=== PATIENT | male | born 1980 | race Two or more races ===

== ENCOUNTER → 2017-08-10 | Outpatient (REF) | payer OTHER ==
[~2017-08-10] MED LIST: ACE3 PO; CIPR-212 PO; METHO500 PO; PER PO; UNKNOWN MEDS; [UNRECOGNIZED DRUG - CODE] PO
== END ==
LOC: ZZSENDIN 09:38
PROVIDERS: ATTEND Physician Assistant
DX: R10.13 Epigastric pain (principal); R14.0 Abdominal distension (gaseous); R74.0 Nonspecific elevation of levels of transaminase and lactic acid dehydrogenase [LDH]
CPT/HCPCS: 87338

== ENCOUNTER → 2017-08-31 | Outpatient (CLI) | payer OTHER ==
[~2017-08-31] MED LIST changes: +SIME62.54 PO
[2017-08-31 16:38] LABS: PLATELET COUNT, AUTOMATED 208 K/uL (150-450)
== END ==
LOC: LAB 16:04
PROVIDERS: ATTEND Emergency Medicine
DX: R74.8 Abnormal levels of other serum enzymes (principal)
CPT/HCPCS: 81332; 82103; 82390; 82784; 83516; 83540; 83550; 84160; 84165; 84443; 85025; 86038; 86140; 86376; 86706; 86707; 86803; 87340; 87350

== ENCOUNTER → 2017-09-02 | Outpatient (CLI) | payer OTHER ==
[~2017-09-02] MED LIST changes: +BARIUM SULFATE 176 GM BTL PO ONE; +BARIUM SULFATE 340 GM POWD ONE
--- NOTE | 2017-09-02 15:03 | RADIOLOGY IMAGING REPORT ---
[place] [facility] [place] Mana Diaz : 1980 MR: [id number] V: [id number] EXAM DATE: ORDERING PHYSICIAN: VIK PLEITEZ TECHNOLOGIST: Location: [facility] - [place] Patient: Mana Diaz : 1980 Visit/Account:[id number] Date of Sevice: 09/02/2017 LIVER HISTORY: Elevated liver enzymes. COMPARISON: None. FINDINGS: Pancreas: Normal. Upper abdominal aorta and IVC: Aorta and IVC are patent by color Doppler and are unremarkable. Liver: The liver is diffusely echogenic, compatible with hepatic steatosis. The portal vein is patent with normal hepatopetal flow. The hepatic vein is patent and phasic. Gallbladder: No stones, wall thickening, or pericholecystic fluid. Negative sonographic Shafer sign. Common duct: Normal, measuring 5 mm. Kidneys: Normal in size and echogenicity. The right kidney measures 10.5 x 4.1 x 4.6 cm. No hydroneph rosis. Ascites: None. IMPRESSION: 1. Hepatic steatosis. It can progress to steatohepatitis and eventual cirrhosis, and can cause elevat ed liver function tests. Report Dictated By: Tiffani Pyle at 09/02/2017 2:57 PM Report E-Signed By: Tiffani Pyle at 09/02/2017 2:59 PM WSN:[id number]
--- NOTE | 2017-09-02 15:21 | RADIOLOGY IMAGING REPORT ---
FACILITY: [facility] PATIENT NAME: Mana Diaz : 1980 MR: [id number] V: [id number] EXAM DATE: ORDERING PHYSICIAN: VIK PLEITEZ TECHNOLOGIST: Location: [facility] - [place] Patient: Mana Diaz : 1980 Visit/Account:[id number] Date of Sevice: 09/02/2017 Esophagram Indication: Dysphagia Comparison: None available Findings: The thoracic esophagus was evaluated with barium air contrast technique. Effervescent crystals were administered to the patient followed by thick and thin barium solution wit hout difficulty. 13 mm barium tablet passes easily through esophagus into the gastric lumen. There is a normal swallowing mechanism with no evidence of aspiration. No evidence of gastroesophageal reflux during the examination. There is no focal stricture or mucosal abnormality of the esophagus. The esophagus appears negative including no evidence for reflux, esophagitis, or hernia. Dose area product: 1068.25 uGym2 IMPRESSION: 1.Unremarkable esophagram Report Dictated By: Pierre Dowell MD at 09/02/2017 3:17 PM Report E-Signed By: Pierre Dowell MD at 09/02/2017 3:18 PM WSN:[email or web address]
== END ==
LOC: US 13:57
PROVIDERS: ATTEND Emergency Medicine
DX: K76.0 Fatty (change of) liver, not elsewhere classified (principal)
CPT/HCPCS: 74220; 76705